=== PATIENT | female | born 1945 | race Caucasian/White ===

== ENCOUNTER 2020-04-27 05:43 | Day surgery (SDC) | payer MEDICARE ==
[2020-04-23 09:48] LABS: HEMATOCRIT 37.1 % (36-48); LYMPHOCYTES % (AUTO) 27.9 % (21.0-51.0); MEAN CORPUSCULAR HEMOGLOBIN 31.2 pg (27.0-33.0); MEAN CORPUSCULAR HGB CONC 33.4 g/dL (32.0-36.0); MEAN CORPUSCULAR VOLUME 93.5 fL (79-99); MONOCYTES % (AUTO) 7.8 % (3.0-13.0); NEUTROPHILS % (AUTO) 59.1 % (40.0-77.0); PLATELET COUNT (AUTO) 143 K/uL (130-400); RED BLOOD CELL COUNT(AUTO) 3.97 MIL/uL (4.00-5.50); RED CELL DISTRIBUTION WIDTH 11.6 % (11.0-15.5)
[2020-04-23 10:07] LABS: CREATININE 1.8 mg/dL (0.5-1.5); POTASSIUM 4.9 mmol/L (3.5-5.1)
[2020-04-23 10:12] LABS: INR 1.1 (0.85-1.15); PARTIAL THROMBOPLASTIN TIME 28.2 SEC (26.3-35.5); PROTHROMBIN TIME 11.8 SEC (9.6-11.6)
--- NOTE | 2020-04-24 13:46 | NUR ---
SPOKE TO WILLAM SANTACRUZ AND ADVISED HER OF [employer] 1.8, NEW ORDERS TO REPEAT BMP IN AM OF PROCEDURE.
[2020-04-27] VITALS (9 sets, daily range): BP systolic 120–142; BP diastolic 61–75
[~2020-04-27] VITALS: Ht 165.1 cm; Wt 69.8 kg
[~2020-04-27 05:43] MED LIST: ABAL1.56 SQ; APIX5TAB PO; ASPI-1443 PO; CHOL200074 PO; CYAN10007 IJ; LISI2.5T2 PO; ROSU10TA28 PO; VERA120T13 PO
--- NOTE | 2020-04-27 06:00 | NUR ---
ASSESSMENT PT HERE FOR PROCEDURE. DENIES ANY PAIN AT THIS TIME
[2020-04-27 06:32] LABS: CREATININE 1.6 mg/dL (0.5-1.5); POTASSIUM 3.8 mmol/L (3.5-5.1)
--- NOTE | 2020-04-27 07:15 | NUR ---
SPEECH PT STATES [employer] Addendum: 04/27/20 at 0720 by CINDI MUELLER RN RN Amended: Links added.
--- NOTE | 2020-04-27 07:30 | NUR ---
PROCEDURE PT TAKEN TO PROCEDURE VIA BED BY EVETTE VALDERRAMA.
[2020-04-27] MEDS ORDERED: HEPARIN SODIUM 1000UNIT/ML 10ML VIAL ONE (07:37)
[2020-04-27] MEDS ORDERED: MIDAZOLAM HCL 1 MG/ML 2ML VIAL ONE ×3 (07:38→09:04)
[2020-04-27] MEDS ORDERED: MEPERIDINE-PF 25 MG/ML SYG ONE ×3 (07:38→09:05)
[2020-04-27] MEDS ORDERED: LIDOCAINE HCL 2% 20ML ONE (07:38)
[2020-04-27] MEDS ORDERED: SODIUM CHLORIDE 0.9% 1000ML 1,000 ML IV SCH (08:00)
--- NOTE | 2020-04-27 11:30 | NUR ---
ASSESSMENT RECEIVED PT FROM ENGLISH [employer] STAFF EVETTE VALDERRAMA. PT AAOX3. SITE TO RIGHT GROIN SOFT TO TOUCH. OPSITE IN PLACE. INSTRUCTED ON IMPORTANCE OF NOT MOVING RIGHT LEG AND NOT LIFTING HEAD UP OFF OF BED. INSTRUCTED PT ON BEDREST. VERBALIZED UNDERSTANDING.
== END 2020-04-27 14:30 | disposition home or self-care (01) ==
LOC: DAH 05:43
PROVIDERS: ATTEND Internal Medicine Cardiovascular Disease
DX: I48.3 Typical atrial flutter (principal); I10 Essential (primary) hypertension; E78.5 Hyperlipidemia, unspecified; Z88.0 Allergy status to penicillin; Z88.5 Allergy status to narcotic agent; Z79.01 Long term (current) use of anticoagulants; Z79.82 Long term (current) use of aspirin; Z79.899 Other long term (current) drug therapy
CPT/HCPCS: 36415 ×2; 80048 ×2; 85025; 85610; 85730; 93005 ×2; 93613; 93621; 93653; A4215; A4216; A4221; A4222; A4223 ×3; A4606; A4649 ×2; A4663; C1730; C1732; C1894 ×2; J1644 ×2; J2175 ×3; J2250 ×3; J3490; J7030; 99156; 99157